=== PATIENT | male | born 1995 | race African-American/Black ===

== ENCOUNTER 2019-08-18 13:28 | Emergency (ER) | payer OTHER ==
--- NOTE | 2019-08-18 17:31 | CT ---
CT OF THE CERVICAL SPINE: 08/18/[address] of the cervical spine was performed following trauma. There is loss of the normal cervical lordosis which may be due to muscle spasm. The C1 to dens distance is normal and the soft tissues are normal in thickness. The disc spaces are normal in height. No fracture, dislocation, foraminal narro wing, or central canal stenosis was seen at any level. IMPRESSION: No acute findings aside from straightening of the cervical spine. POS: HOME
--- NOTE | 2019-08-18 17:34 | CT ---
CT LUMBAR SPINE 08/18/[address] of the lumbar spine was performed following trauma. Axial slices were acquired followed by coronal and sagittal reconstructions. No fracture, dislocation, or disc space narrowing was seen at any level. There is no sign of central canal or foraminal stenosis. The visible soft tissue structures are unremarkable. IMPRESSION: No acute traumatic findings. Preliminary report for both scans called to Dr. Berg at 1349 on 08/18/19. POS: HOME
--- NOTE | 2019-08-18 17:34 | RAD ---
LEFT SHOULDER THREE VIEWS: 08/18/19 No fracture, dislocation, or AC joint widening was detected. All visible bony structures appeared int act. IMPRESSION: No acute finding. POS: HOME
--- NOTE | 2019-08-18 17:35 | RAD ---
LEFT KNEE FOUR VIEWS: 08/18/19 No fracture, dislocation, or joint effusion was seen. All bony structures appear intact. IMPRESSION: No acute finding. POS: HOME
== END 2019-08-18 14:24 | disposition home or self-care (01) ==
LOC: BURERS 13:28
DX: S40.012A Contusion of left shoulder, initial encounter (principal); M54.5 Low back pain; M25.562 Pain in left knee; V89.2XXA Person injured in unspecified motor-vehicle accident, traffic, initial encounter; F17.210 Nicotine dependence, cigarettes, uncomplicated
CPT/HCPCS: 72126; 72131; G0390; L0120